=== PATIENT | male | born 1990 | race Caucasian/White ===

== ENCOUNTER 2022-01-31 19:29 | Emergency (ER) | payer OTHER ==
[2022-01-31 21:27] LABS: RED BLOOD COUNT 4.62 M/UL (4.20-5.50); WHITE BLOOD COUNT 17.2 K/UL (4.5-11.0)
[2022-01-31] MEDS ORDERED: IBUPROFEN800 MG PO (21:48)
[2022-01-31 21:51] LABS: BUN/CREATININE RATIO 22 (0-10)
[2022-01-31] MEDS ORDERED: CEFUROXIME500 MG PO (21:58)
[2022-01-31] MEDS ORDERED: AMOXICILLIN500 M1 PO (21:59)
== END 2022-01-31 22:03 | disposition home or self-care (01) ==
LOC: ER1 19:29
PROVIDERS: Preventive Medicine Occupational Medicine
DX: R10.9 Unspecified abdominal pain (principal); Z86.19 Personal history of other infectious and parasitic diseases
CPT/HCPCS: 72100; 80053; 80307; 81001; 85025; 86140; 87086; 96374; 99284; J1885

== ENCOUNTER 2022-02-02 20:20 | Emergency (ER) | payer OTHER ==
[~2022-02-02 20:20] MED LIST: AMOXICILLIN500 M1 PO; CEFUROXIME500 MG PO; IBUPROFEN800 MG PO
[2022-02-02 21:47] LABS: HEMOGLOBIN 13.3 gm/dl (14.0-17.5); RED BLOOD COUNT 4.82 M/UL (4.20-5.50); WHITE BLOOD COUNT 12.9 K/UL (4.5-11.0)
[2022-02-02 22:04] LABS: BUN/CREATININE RATIO 17 (0-10)
[2022-02-03] MEDS ORDERED: IBU600 MG PO (02:26)
[2022-02-03] MEDS ORDERED: ZOFRAN ODT 4 MG4 MG SL (02:26)
== END 2022-02-03 03:31 | disposition home or self-care (01) ==
LOC: ER1 20:20
PROVIDERS: Nurse Practitioner
DX: U07.1 COVID-19 (principal)
CPT/HCPCS: 0240U; 72129; 72132; 80053; 80076; 80307; 81001; 83605; 83874; 85025; 85652; 86140; 87040; 93005; 96374; 99284; J1885; Q9967

== ENCOUNTER 2022-03-21 21:17 | Emergency (ER) | payer SELFPAY ==
[~2022-03-21 21:17] MED LIST changes: +IBU600 MG PO; +ZOFRAN ODT 4 MG4 MG SL
[2022-03-21] MEDS ORDERED: MEDROL DOSEPAK 24 MG PO (23:18)
[2022-03-21] MEDS ORDERED: IBUPROFEN600 MG PO (23:18)
[2022-03-21] MEDS ORDERED: NORFLEX 100 MG100 MG PO (23:18)
== END 2022-03-21 23:35 | disposition home or self-care (01) ==
LOC: ER1 21:17
DX: M54.50 Low back pain, unspecified (principal); F17.210 Nicotine dependence, cigarettes, uncomplicated; W20.8XXA Other cause of strike by thrown, projected or falling object, initial encounter
CPT/HCPCS: 72131; 99283